=== PATIENT | female | born 1935 | race Caucasian/White ===

== ENCOUNTER 2017-05-28 01:14 | Emergency (ER) | payer SELFPAY, OTHER, MEDICARE | END 2017-05-28 05:24 | disposition left against medical advice (07) | LOC: E/R 05:24 | DX: Z53.21 Procedure and treatment not carried out due to patient leaving prior to being seen by health care provider (principal) ==

== ENCOUNTER 2017-05-29 21:19 | Inpatient (IN) | payer MEDICARE, OTHER ==
[2017-05-30] MEDS ORDERED: DOCUSATE SODIUM 100 MG CAP PO (01:30)
[2017-05-30] MEDS ORDERED: LORAZEPAM 2 MG INJ IV (01:30)
[2017-05-30] MEDS ORDERED: MAGNESIUM HYDROXIDE 30ML CUP PO (01:30)
[2017-05-30] MEDS ORDERED: NITROGLYCERIN (SL) 0.4 MG TAB SL (01:30)
[2017-05-30] MEDS ORDERED: HYDROCODONE/APAP (5/325) TAB PO (01:30)
[2017-05-30] MEDS ORDERED: morphine 2 MG INJ IV (01:30)
[2017-05-30] MEDS ORDERED: NACL 0.9% 3 ML SYG IV (01:30)
[2017-05-30] MEDS ORDERED: NA PHOSPHATE/BIPHOS 133 ML ENEMA PR (01:30)
[2017-05-30] MEDS ORDERED: hydrALAzine 20 MG INJ IV (01:30)
[2017-05-30] MEDS ORDERED: ALBUTEROL/IPRATROPIUM (NEB) 3 ML AMP HHN (01:30)
[2017-05-30] MEDS ORDERED: ACETAMINOPHEN 325 MG TAB PO (01:30)
[2017-05-30] MEDS: ACCU-CHEK XX (01:40)
[2017-05-30] MEDS: SOD CHLORIDE 0.45% 1,000 ML IV ×2 (02:15→14:03)
[2017-05-30] MEDS: CEFTRIAXONE 1 GM/50 ML (PMX) 50 ML IVPB (02:15)
[2017-05-30] MEDS: INSULIN ASPART [NOVOLOG] 3 ML PEN SC ×5 (05:35→20:55)
[2017-05-30] MEDS: PANTOPRAZOLE (EC) 40 MG TAB PO (05:36)
[2017-05-30 07:49] LABS: LACTIC ACID 0.7 mmol/L (0.5-2.0)
[2017-05-30] MEDS: INSULIN GLARGINE [LANtus] 3 ML PEN SC (10:00)
[2017-05-30] MEDS: BRIMONIDINE 0.2%-TIMOLOL 0.5% 5ML OPH BOTH EYES ×2 (10:01→20:47)
[2017-05-30] MEDS: PAROXETINE 10 MG TAB PO (10:02)
[2017-05-30] MEDS: LAMOTRIGINE 25 MG TAB PO ×2 (10:02→20:54)
[2017-05-30] MEDS: APIXABAN 5 MG TABLET PO ×2 (10:02→20:49)
[2017-05-30] MEDS: FOLIC ACID 0.4 MG TAB PO (10:10)
[2017-05-30] MEDS: ONDANSETRON 4 MG INJ IV (10:42)
[2017-05-30 11:35] LABS: ADD MAN DIFF? NO
[2017-05-30 11:44] LABS: WHITE BLOOD COUNT 14.4 10^3/ul (4.8-10.8)
[2017-05-30 11:44] LABS: BASOPHIL # 0.1 10^3/ul (0.0-0.1); BASOPHILS % 0.3 % (0.0-2.0); EOSINOPHILS # 0.2 10^3/ul (0.0-0.5); EOSINOPHILS % 1.4 % (0.0-7.0); HEMATOCRIT 34.8 % (37.0-47.0); LYMPHOCYTES # 1.8 10^3/ul (0.8-2.9); LYMPHOCYTES % 12.8 % (15.0-51.0); MEAN CORPUSCULAR HEMOGLOBIN 27.5 pg (29.0-33.0); MEAN CORPUSCULAR HGB CONC 31.6 g/dl (32.0-37.0); MONOCYTE # 0.8 10^3/ul (0.3-0.9); MONOCYTES % 5.4 % (0.0-11.0); NEUTROPHIL # 11.5 10^3/ul (1.6-7.5); NEUTROPHILS % 79.8 % (39.0-77.0); PLATELET COUNT 222 10^3/UL (140-415); RED CELL DISTRIBUTION WIDTH 13.1 % (11.5-14.5)
[2017-05-30 11:45] LABS: MEAN PLATELET VOLUME 11.4 fl (7.4-10.4); POSITIVE DIFF @See below
[2017-05-30 12:16] LABS: ANION GAP 15 (8-16); BLOOD UREA NITROGEN 15 mg/dl (7-20); CALCIUM 7.5 mg/dl (8.4-10.2); CARBON DIOXIDE 22 mmol/L (21-31); CHLORIDE 106 mmol/L (97-110); CREATININE 0.76 mg/dl (0.44-1.00); GLUCOSE 127 mg/dl (70-220); POTASSIUM 3.8 mmol/L (3.5-5.1); SODIUM 139 mmol/L (135-144)
[2017-05-30 12:54] LABS: CHOL/HDL RATIO 2.1 RATIO; HDL CHOLESTEROL 35 mg/dl (33-92); LDL CHOLESTEROL,CALCULATED 26 mg/dl; TRIGLYCERIDES 76 mg/dl (0-149)
[2017-05-30 12:54] LABS: CHOLESTEROL 76 mg/dl (100-200); MAGNESIUM 1.8 mg/dl (1.7-2.5)
[2017-05-30 12:57] LABS: PHOSPHORUS 2.9 mg/dl (2.5-4.9)
[2017-05-30 12:59] LABS: HEMOGLOBIN A1C 7.1 % (0-5.9)
[2017-05-30] MEDS: DEXTROSE 5%-0.45% NACL 1,000 ML IV (17:44)
[2017-05-30] MEDS ORDERED: APIXABAN 5 MG TABLET (19:59)
[2017-05-30] MEDS ORDERED: ATORVASTATIN 40 MG TAB (20:00)
[2017-05-30] MEDS ORDERED: ATORVASTATIN 20 MG TAB (20:00)
[2017-05-30] MEDS: ATORVASTATIN 10 MG TAB PO (20:54)
[2017-05-31] MEDS: INSULIN ASPART [NOVOLOG] 3 ML PEN SC ×4 (01:00→13:16)
[2017-05-31] MEDS: ACCU-CHEK XX (02:00)
[2017-05-31] MEDS: CEFTRIAXONE 1 GM/50 ML (PMX) 50 ML IVPB (02:29)
[2017-05-31] MEDS: PANTOPRAZOLE (EC) 40 MG TAB PO (05:22)
[2017-05-31 06:10] LABS: ADD MAN DIFF? NO
[2017-05-31 06:25] LABS: WHITE BLOOD COUNT 16.9 10^3/ul (4.8-10.8)
[2017-05-31 06:25] LABS: BASOPHILS % 0.2 % (0.0-2.0); EOSINOPHILS # 0.1 10^3/ul (0.0-0.5); EOSINOPHILS % 0.5 % (0.0-7.0); HEMATOCRIT 30.1 % (37.0-47.0); HEMOGLOBIN 9.6 g/dl (12.0-16.0); LYMPHOCYTES # 1.8 10^3/ul (0.8-2.9); LYMPHOCYTES % 10.6 % (15.0-51.0); MEAN CORPUSCULAR HEMOGLOBIN 27.8 pg (29.0-33.0); MEAN CORPUSCULAR HGB CONC 31.9 g/dl (32.0-37.0); MEAN CORPUSCULAR VOLUME 87.2 fl (82.0-101.0); MONOCYTES % 5.8 % (0.0-11.0); NEUTROPHIL # 13.9 10^3/ul (1.6-7.5); NEUTROPHILS % 82.2 % (39.0-77.0); PLATELET COUNT 233 10^3/UL (140-415); RED BLOOD COUNT 3.45 10^6/ul (4.20-5.40); RED CELL DISTRIBUTION WIDTH 13.2 % (11.5-14.5)
[2017-05-31] MEDS: DEXTROSE 5%-0.45% NACL 1,000 ML IV ×2 (07:04→10:02)
[2017-05-31 07:44] LABS: ANION GAP 8 (8-16); BLOOD UREA NITROGEN 16 mg/dl (7-20); CALCIUM 7.8 mg/dl (8.4-10.2); CARBON DIOXIDE 23 mmol/L (21-31); CHLORIDE 109 mmol/L (97-110); CREATININE 0.94 mg/dl (0.44-1.00); GLUCOSE 99 mg/dl (70-220); POTASSIUM 3.3 mmol/L (3.5-5.1); SODIUM 137 mmol/L (135-144)
[2017-05-31] MEDS: BRIMONIDINE 0.2%-TIMOLOL 0.5% 5ML OPH BOTH EYES ×2 (09:23→21:09)
[2017-05-31] MEDS: PAROXETINE 10 MG TAB PO (09:23)
[2017-05-31] MEDS: APIXABAN 5 MG TABLET PO ×2 (09:24→21:09)
[2017-05-31] MEDS: LAMOTRIGINE 25 MG TAB PO ×2 (09:24→21:08)
[2017-05-31] MEDS: FOLIC ACID 0.4 MG TAB PO (09:24)
[2017-05-31] MEDS: INSULIN GLARGINE [LANtus] 3 ML PEN SC (09:28)
[2017-05-31] MEDS: metroNIDAZOLE 500 MG TAB PO ×2 (15:15→21:09)
[2017-05-31] MEDS: POTASSIUM CHLORIDE (SR) 20 MEQ TAB PO (15:16)
[2017-05-31] MEDS ORDERED: INSULIN ASPART [NOVOLOG] 3 ML PEN SC (17:35)
[2017-05-31] MEDS: Insulin NOVOLOG SS MILD Algorithm (SS with meals and bedtime) SC ×2 (17:35→21:00)
[2017-05-31] MEDS: ATORVASTATIN 10 MG TAB PO (21:08)
[2017-06-01] MEDS: ACCU-CHEK XX (02:00)
[2017-06-01] MEDS: CEFTRIAXONE 1 GM/50 ML (PMX) 50 ML IVPB (02:01)
[2017-06-01] MEDS: metroNIDAZOLE 500 MG TAB PO ×3 (05:13→21:33)
[2017-06-01] MEDS: PANTOPRAZOLE (EC) 40 MG TAB PO (05:13)
[2017-06-01 06:21] LABS: ADD MAN DIFF? NO
[2017-06-01 06:38] LABS: WHITE BLOOD COUNT 14.8 10^3/ul (4.8-10.8)
[2017-06-01 06:38] LABS: BASOPHIL # 0.1 10^3/ul (0.0-0.1); BASOPHILS % 0.3 % (0.0-2.0); EOSINOPHILS # 0.2 10^3/ul (0.0-0.5); HEMATOCRIT 28.9 % (37.0-47.0); HEMOGLOBIN 9.4 g/dl (12.0-16.0); LYMPHOCYTES # 1.7 10^3/ul (0.8-2.9); LYMPHOCYTES % 11.7 % (15.0-51.0); MEAN CORPUSCULAR HEMOGLOBIN 27.9 pg (29.0-33.0); MEAN CORPUSCULAR HGB CONC 32.5 g/dl (32.0-37.0); MEAN CORPUSCULAR VOLUME 85.8 fl (82.0-101.0); MEAN PLATELET VOLUME 10.9 fl (7.4-10.4); MONOCYTE # 0.8 10^3/ul (0.3-0.9); MONOCYTES % 5.2 % (0.0-11.0); NEUTROPHIL # 12.1 10^3/ul (1.6-7.5); NEUTROPHILS % 81.5 % (39.0-77.0); PLATELET COUNT 242 10^3/UL (140-415); RED BLOOD COUNT 3.37 10^6/ul (4.20-5.40); RED CELL DISTRIBUTION WIDTH 13.2 % (11.5-14.5)
[2017-06-01] MEDS: Insulin NOVOLOG SS MILD Algorithm (SS with meals and bedtime) SC ×4 (07:30→21:00)
[2017-06-01 08:40] LABS: ANION GAP 10 (8-16); BLOOD UREA NITROGEN 16 mg/dl (7-20); CALCIUM 7.6 mg/dl (8.4-10.2); CARBON DIOXIDE 22 mmol/L (21-31); CHLORIDE 109 mmol/L (97-110); CREATININE 0.97 mg/dl (0.44-1.00); GLUCOSE 109 mg/dl (70-220); POTASSIUM 3.3 mmol/L (3.5-5.1); SODIUM 138 mmol/L (135-144)
[2017-06-01] MEDS: APIXABAN 5 MG TABLET PO ×2 (09:19→21:33)
[2017-06-01] MEDS: BRIMONIDINE 0.2%-TIMOLOL 0.5% 5ML OPH BOTH EYES ×2 (09:19→21:34)
[2017-06-01] MEDS: FOLIC ACID 0.4 MG TAB PO (09:20)
[2017-06-01] MEDS: PAROXETINE 10 MG TAB PO (09:20)
[2017-06-01] MEDS: LAMOTRIGINE 25 MG TAB PO ×2 (09:21→21:33)
[2017-06-01] MEDS: INSULIN GLARGINE [LANtus] 3 ML PEN SC (09:22)
[2017-06-01] MEDS: POTASSIUM CHLORIDE 20 MEQ POWDER FOR ORAL SOLN PO (16:56)
[2017-06-01] MEDS: SOD CHLORIDE 0.9% 500 ML IV (16:56)
[2017-06-01] MEDS: FAMOTIDINE 20 MG TAB PO (16:56)
[2017-06-01] MEDS: VANCOMYCIN HCL 250 MG/5ML POSYG PO ×2 (17:07→23:39)
[2017-06-01] MEDS: ATORVASTATIN 10 MG TAB PO (21:33)
[2017-06-02] MEDS: ACCU-CHEK XX (02:00)
[2017-06-02] MEDS: VANCOMYCIN HCL 250 MG/5ML POSYG PO ×3 (06:01→17:37)
[2017-06-02] MEDS: metroNIDAZOLE 500 MG TAB PO ×3 (06:01→20:47)
[2017-06-02 06:09] LABS: ADD MAN DIFF? NO
[2017-06-02 06:19] LABS: WHITE BLOOD COUNT 10.2 10^3/ul (4.8-10.8)
[2017-06-02 06:19] LABS: BASOPHILS % 0.3 % (0.0-2.0); EOSINOPHILS # 0.3 10^3/ul (0.0-0.5); EOSINOPHILS % 2.5 % (0.0-7.0); HEMOGLOBIN 9.5 g/dl (12.0-16.0); LYMPHOCYTES # 1.5 10^3/ul (0.8-2.9); LYMPHOCYTES % 14.9 % (15.0-51.0); MEAN CORPUSCULAR HEMOGLOBIN 27.9 pg (29.0-33.0); MEAN CORPUSCULAR HGB CONC 32.8 g/dl (32.0-37.0); MEAN CORPUSCULAR VOLUME 85.3 fl (82.0-101.0); MEAN PLATELET VOLUME 10.8 fl (7.4-10.4); MONOCYTE # 0.5 10^3/ul (0.3-0.9); MONOCYTES % 4.6 % (0.0-11.0); NEUTROPHIL # 7.9 10^3/ul (1.6-7.5); NEUTROPHILS % 77.4 % (39.0-77.0); PLATELET COUNT 229 10^3/UL (140-415); RED CELL DISTRIBUTION WIDTH 13.1 % (11.5-14.5)
[2017-06-02 06:37] LABS: PHOSPHORUS 2.5 mg/dl (2.5-4.9)
[2017-06-02 06:37] LABS: MAGNESIUM 1.8 mg/dl (1.7-2.5)
[2017-06-02 06:40] LABS: INR 1.94; PROTIME 22.6 Sec (11.9-14.9); PT RATIO 1.8
[2017-06-02] MEDS: Insulin NOVOLOG SS MILD Algorithm (SS with meals and bedtime) SC ×4 (07:30→20:55)
[2017-06-02] MEDS: APIXABAN 5 MG TABLET PO ×2 (08:31→20:47)
[2017-06-02] MEDS: PAROXETINE 10 MG TAB PO (08:31)
[2017-06-02] MEDS: POTASSIUM CHLORIDE 20 MEQ POWDER FOR ORAL SOLN PO ×2 (08:31→20:47)
[2017-06-02] MEDS: FAMOTIDINE 20 MG TAB PO (08:31)
[2017-06-02] MEDS: FOLIC ACID 0.4 MG TAB PO (08:31)
[2017-06-02] MEDS: LAMOTRIGINE 25 MG TAB PO ×2 (08:31→20:48)
[2017-06-02] MEDS: BRIMONIDINE 0.2%-TIMOLOL 0.5% 5ML OPH BOTH EYES ×2 (08:32→20:47)
[2017-06-02] MEDS: INSULIN GLARGINE [LANtus] 3 ML PEN SC (08:34)
[2017-06-02 09:38] LABS: ALANINE AMINOTRANSFERASE 28 IU/L (13-69); ALBUMIN 2.4 g/dl (3.3-4.9); ALKALINE PHOSPHATASE 72 IU/L (42-121); ANION GAP 12 (8-16); ASPARTATE AMINO TRANSFERASE 17 IU/L (15-46); BLOOD UREA NITROGEN 15 mg/dl (7-20); CALCIUM 7.7 mg/dl (8.4-10.2); CARBON DIOXIDE 21 mmol/L (21-31); CHLORIDE 111 mmol/L (97-110); CREATININE 0.88 mg/dl (0.44-1.00); GLUCOSE 132 mg/dl (70-220); POTASSIUM 3.5 mmol/L (3.5-5.1); SODIUM 140 mmol/L (135-144); TOTAL PROTEIN 4.8 g/dl (6.1-8.1)
[2017-06-02] MEDS: ATORVASTATIN 10 MG TAB PO (20:48)
[2017-06-03] MEDS: VANCOMYCIN HCL 250 MG/5ML POSYG PO ×3 (00:35→12:20)
[2017-06-03] MEDS: ACCU-CHEK XX (02:44)
[2017-06-03 05:41] LABS: ADD MAN DIFF? NO
[2017-06-03] MEDS: metroNIDAZOLE 500 MG TAB PO ×2 (05:45→14:16)
[2017-06-03 05:46] LABS: BASOPHILS % 0.4 % (0.0-2.0); EOSINOPHILS # 0.3 10^3/ul (0.0-0.5); EOSINOPHILS % 3.4 % (0.0-7.0); HEMATOCRIT 30.7 % (37.0-47.0); HEMOGLOBIN 9.9 g/dl (12.0-16.0); LYMPHOCYTES # 1.6 10^3/ul (0.8-2.9); LYMPHOCYTES % 20.5 % (15.0-51.0); MEAN CORPUSCULAR HEMOGLOBIN 27.3 pg (29.0-33.0); MEAN CORPUSCULAR HGB CONC 32.2 g/dl (32.0-37.0); MEAN CORPUSCULAR VOLUME 84.6 fl (82.0-101.0); MEAN PLATELET VOLUME 10.3 fl (7.4-10.4); MONOCYTE # 0.5 10^3/ul (0.3-0.9); MONOCYTES % 6.2 % (0.0-11.0); NEUTROPHIL # 5.2 10^3/ul (1.6-7.5); NEUTROPHILS % 69.2 % (39.0-77.0); PLATELET COUNT 276 10^3/UL (140-415); RED BLOOD COUNT 3.63 10^6/ul (4.20-5.40)
[2017-06-03 05:46] LABS: WHITE BLOOD COUNT 7.6 10^3/ul (4.8-10.8)
[2017-06-03 06:07] LABS: ANION GAP 10 (8-16); BLOOD UREA NITROGEN 15 mg/dl (7-20); CALCIUM 7.8 mg/dl (8.4-10.2); CARBON DIOXIDE 20 mmol/L (21-31); CHLORIDE 114 mmol/L (97-110); CREATININE 0.83 mg/dl (0.44-1.00); GLUCOSE 160 mg/dl (70-220); POTASSIUM 4.3 mmol/L (3.5-5.1); SODIUM 140 mmol/L (135-144)
[2017-06-03] MEDS: Insulin NOVOLOG SS MILD Algorithm (SS with meals and bedtime) SC ×2 (08:30→12:22)
[2017-06-03] MEDS: PAROXETINE 10 MG TAB PO (09:53)
[2017-06-03] MEDS: LAMOTRIGINE 25 MG TAB PO (09:53)
[2017-06-03] MEDS: BRIMONIDINE 0.2%-TIMOLOL 0.5% 5ML OPH BOTH EYES (09:53)
[2017-06-03] MEDS: FAMOTIDINE 20 MG TAB PO (09:54)
[2017-06-03] MEDS: APIXABAN 5 MG TABLET PO (09:54)
[2017-06-03] MEDS: FOLIC ACID 0.4 MG TAB PO (09:54)
[2017-06-03] MEDS: POTASSIUM CHLORIDE 20 MEQ POWDER FOR ORAL SOLN PO (09:55)
[2017-06-03] MEDS: INSULIN GLARGINE [LANtus] 3 ML PEN SC (10:03)
[2017-06-03] MEDS: LEVOFLOXACIN 500MG/D5W (PMX) 100 ML IVPB (12:19)
[2017-06-03] MEDS: LACTOBACILLUS RHAMNOSUS CAP PO (12:20)
== END 2017-06-03 16:10 | disposition home health service (06) | DRG 372 ==
LOC: PP2 21:19
PROVIDERS: Internal Medicine
DX: A04.72 Enterocolitis due to Clostridium difficile, not specified as recurrent (principal); N39.0 Urinary tract infection, site not specified; I48.2 Chronic atrial fibrillation; E11.9 Type 2 diabetes mellitus without complications; G40.909 Epilepsy, unspecified, not intractable, without status epilepticus; E78.5 Hyperlipidemia, unspecified; I10 Essential (primary) hypertension; Z86.73 Personal history of transient ischemic attack (TIA), and cerebral infarction without residual deficits; Z79.01 Long term (current) use of anticoagulants
CPT/HCPCS: 80048; 80053; 80061; 82962; 83036; 83605; 83735; 84100; 84443; 85025; 85610; 87045; 87075; 87081; 87177

== ENCOUNTER 2017-07-09 02:55 | Inpatient (IN) | payer MEDICARE, OTHER ==
[2017-07-09] MEDS: DEXTROSE 5%-0.45% NACL 1,000 ML IV (05:01)
[2017-07-09] MEDS ORDERED: GLUCAGON 1 MG INJ IM (05:30)
[2017-07-09] MEDS ORDERED: GLUCOSE GEL 15 GRAM TUBE PO ×2 (05:30)
[2017-07-09] MEDS ORDERED: GLUCOSE GEL 15 GRAM TUBE BUCCAL (05:30)
[2017-07-09] MEDS ORDERED: DEXTROSE 50% 50 ML SYRINGE IV ×2 (05:30)
[2017-07-09] MEDS: INSULIN ASPART [NOVOLOG] 3 ML PEN SC ×7 (05:39→21:30)
[2017-07-09 05:57] LABS: ABNORMAL IP MESSAGE 1; MEAN CORPUSCULAR HEMOGLOBIN 27.6 pg (29.0-33.0); MEAN CORPUSCULAR HGB CONC 32.4 g/dl (32.0-37.0); MEAN CORPUSCULAR VOLUME 85.4 fl (82.0-101.0); MEAN PLATELET VOLUME 11.9 fl (7.4-10.4); PLATELET COUNT 165 10^3/UL (140-415); RED BLOOD COUNT 3.98 10^6/ul (4.20-5.40); RED CELL DISTRIBUTION WIDTH 14.2 % (11.5-14.5)
[2017-07-09 05:57] LABS: WHITE BLOOD COUNT 9.9 10^3/ul (4.8-10.8)
[2017-07-09 06:43] LABS: POSITIVE DIFF @See below
[2017-07-09 06:44] LABS: ADD MAN DIFF? YES
[2017-07-09 06:46] LABS: ALANINE AMINOTRANSFERASE 20 IU/L (13-69); ALBUMIN 3.2 g/dl (3.3-4.9); ALKALINE PHOSPHATASE 81 IU/L (42-121); ANION GAP 18 (8-16); ASPARTATE AMINO TRANSFERASE 22 IU/L (15-46); BILIRUBIN,INDIRECT 0.2 mg/dl (0-1.1); BILIRUBIN,TOTAL 0.2 mg/dl (0.2-1.3); BLOOD UREA NITROGEN 24 mg/dl (7-20); CALCIUM 8.4 mg/dl (8.4-10.2); CARBON DIOXIDE 18 mmol/L (21-31); CHLORIDE 109 mmol/L (97-110); GLUCOSE 192 mg/dl (70-220); MAGNESIUM 1.6 mg/dl (1.7-2.5); PHOSPHORUS 3.7 mg/dl (2.5-4.9); POTASSIUM 3.2 mmol/L (3.5-5.1); SODIUM 142 mmol/L (135-144); TOTAL PROTEIN 6.4 g/dl (6.1-8.1)
[2017-07-09 06:50] LABS: HEMOGLOBIN A1C 6.6 % (0-5.9)
[2017-07-09] MEDS: CEFTRIAXONE 1 GM/50 ML (PMX) 50 ML IVPB (08:54)
[2017-07-09] MEDS ORDERED: LOSARTAN 25 MG TAB PO (09:00)
[2017-07-09] MEDS ORDERED: NITROGLYCERIN (SL) 0.4 MG TAB SL (09:00)
[2017-07-09 10:08] LABS: ADD UMIC YES; UR AMORPHOUS CRYSTAL FEW /HPF (NONE SEEN); UR ASCORBIC ACID NEGATIVE (NEGATIVE); UR BACTERIA MANY /HPF (NONE SEEN); UR BILIRUBIN (Dip) NEGATIVE (NEGATIVE); UR BLOOD (Dip) 2+ mg/dL (NEGATIVE); UR CLARITY CLOUDY (CLEAR); UR COLOR YELLOW (YELLOW); UR GLUCOSE (Dip) NEGATIVE (NEGATIVE); UR KETONES (Dip) NEGATIVE (NEGATIVE); UR LEUKOCYTE ESTERASE (Dip) NEGATIVE Leu/ul (NEGATIVE); UR MUCUS FEW /HPF (NONE SEEN); UR NITRITE (Dip) POSITIVE (NEGATIVE); UR RBC 0 /HPF (0-5); UR SQUAMOUS EPITHELIAL CELL FEW /HPF (FEW); UR TOTAL PROTEIN (Dip) 1+ mg/dl (NEGATIVE); UR UROBILINOGEN (Dip) NEGATIVE (NEGATIVE); UR WBC 5 /HPF (0-5)
[2017-07-09] MEDS: APIXABAN 5 MG TABLET PO (10:17)
[2017-07-09] MEDS: LOSARTAN 50 MG TAB PO (10:17)
[2017-07-09] MEDS: metroNIDAZOLE 500 MG/NS (PMX) 100 ML IVPB ×3 (10:22→22:54)
[2017-07-09 10:44] LABS: BAND NEUTROPHILS #M 0.4 10^3/ul (0.0-0.6); BAND NEUTROPHILS % (M) 5 % (0-4); LYMPHOCYTES # 0.6 10^3/ul (0.8-2.9); LYMPHOCYTES #M 0.5 10^3/ul (0.8-2.9); LYMPHOCYTES % (M) 6 % (15-51); MONOCYTE # 0.3 10^3/ul (0.3-0.9); MONOCYTE #M 0.2 10^3/ul (0.3-0.9); MONOCYTES % (M) 3 % (0-11); SEG NEUT #M 8.6 10^3/ul (1.7-7.5); SEGMENTED NEUTROPHILS (M) % 86 % (39-77)
[2017-07-09 10:45] LABS: POIKILOCYTOSIS 1+ (0-0); POLYCHROMASIA 1+ (0-0)
[2017-07-09 10:46] LABS: PLATELET ESTIMATE NORMAL
[2017-07-09] MEDS: BRIMONIDINE 0.2%-TIMOLOL 0.5% 5ML OPH BOTH EYES ×2 (10:48→21:30)
[2017-07-09] MEDS: PAROXETINE 10 MG TAB PO (10:49)
[2017-07-09] MEDS: ACETAMINOPHEN 325 MG TAB PO (10:49)
[2017-07-09] MEDS: FOLIC ACID 0.4 MG TAB PO (10:49)
[2017-07-09] MEDS: LAMOTRIGINE 25 MG TAB PO ×2 (10:49→21:00)
[2017-07-09] MEDS: INSULIN GLARGINE [LANtus] 3 ML PEN SC (11:02)
[2017-07-09] MEDS ORDERED: ONDANSETRON 4 MG INJ IV (11:30)
[2017-07-09] MEDS: POTASSIUM CHLORIDE (SR) 20 MEQ TAB PO (13:08)
[2017-07-09] MEDS: MAGNESIUM SULFATE 2 GM/50 ML 50 ML IVPB (14:03)
[2017-07-09] MEDS: D5W-0.45 NACL + KCL 30 MEQ 1,000 ML IV (17:09)
[2017-07-09] MEDS: ATORVASTATIN 10 MG TAB PO (21:00)
[2017-07-10] MEDS: INSULIN ASPART [NOVOLOG] 3 ML PEN SC ×9 (01:00→20:27)
[2017-07-10] MEDS: D5W-0.45 NACL + KCL 30 MEQ 1,000 ML IV ×3 (04:30→20:43)
[2017-07-10] MEDS: PANTOPRAZOLE (EC) 40 MG TAB PO (05:03)
[2017-07-10] MEDS: metroNIDAZOLE 500 MG/NS (PMX) 100 ML IVPB (05:54)
[2017-07-10 07:15] LABS: ABNORMAL IP MESSAGE 1; HEMATOCRIT 30.9 % (37.0-47.0); MEAN CORPUSCULAR HEMOGLOBIN 27.7 pg (29.0-33.0); MEAN CORPUSCULAR HGB CONC 32.4 g/dl (32.0-37.0); MEAN CORPUSCULAR VOLUME 85.6 fl (82.0-101.0); MEAN PLATELET VOLUME 12.1 fl (7.4-10.4); PLATELET COUNT 220 10^3/UL (140-415); RED BLOOD COUNT 3.61 10^6/ul (4.20-5.40); RED CELL DISTRIBUTION WIDTH 14.1 % (11.5-14.5)
[2017-07-10 07:15] LABS: WHITE BLOOD COUNT 16.3 10^3/ul (4.8-10.8)
[2017-07-10 07:21] LABS: POSITIVE DIFF @See below
[2017-07-10 07:22] LABS: ADD MAN DIFF? YES
[2017-07-10 07:39] LABS: ANION GAP 15 (8-16); BLOOD UREA NITROGEN 32 mg/dl (7-20); CALCIUM 7.9 mg/dl (8.4-10.2); CARBON DIOXIDE 19 mmol/L (21-31); CHLORIDE 111 mmol/L (97-110); GLUCOSE 72 mg/dl (70-220); MAGNESIUM 2.3 mg/dl (1.7-2.5); SODIUM 142 mmol/L (135-144)
[2017-07-10 07:47] LABS: POTASSIUM 2.8 mmol/L (3.5-5.1)
[2017-07-10] MEDS: CEFTRIAXONE 1 GM/50 ML (PMX) 50 ML IVPB (08:47)
[2017-07-10] MEDS: BRIMONIDINE 0.2%-TIMOLOL 0.5% 5ML OPH BOTH EYES ×2 (08:47→20:23)
[2017-07-10] MEDS: LAMOTRIGINE 25 MG TAB PO ×2 (08:48→20:21)
[2017-07-10] MEDS: APIXABAN 5 MG TABLET PO ×2 (08:48→20:23)
[2017-07-10] MEDS: PAROXETINE 10 MG TAB PO (08:48)
[2017-07-10] MEDS: LOSARTAN 50 MG TAB PO (08:48)
[2017-07-10] MEDS: FOLIC ACID 0.4 MG TAB PO (08:48)
[2017-07-10 09:19] LABS: ANISOCYTOSIS 1+ (0-0); BAND NEUTROPHILS #M 6.5 10^3/ul (0.0-0.6); BAND NEUTROPHILS % (M) 40 % (0-4); BASOPHIL #M 0.1 10^3/ul (0.0-0.0); BASOPHILS % (M) 1 % (0-2); EOSINOPHILS % (M) 1 % (0-7); GIANT THROMBO% (M) 1 % (0-0); LYMPHOCYTES #M 4.7 10^3/ul (0.8-2.9); LYMPHOCYTES % (M) 29 % (15-51); MICROCYTOSIS 1+ (0-0); MONOCYTE #M 0.8 10^3/ul (0.3-0.9); MONOCYTES % (M) 5 % (0-11); PLATELET ESTIMATE NORMAL; POLYCHROMASIA 2+ (0-0); REACTIVE LYMPHOCYTES #M 0.3 10^3/ul (0.0-0.0); REACTIVE LYMPHOCYTES% (M) 2 % (0-0); SEG NEUT #M 4.6 10^3/ul (1.6-7.5); SEGMENTED NEUTROPHILS (M) % 22 % (39-77); SMUDGE%M 20 % (0-0)
[2017-07-10] MEDS: POTASSIUM CHLORIDE 100 ML IVPB ×2 (10:08→12:28)
[2017-07-10] MEDS: INSULIN GLARGINE [LANtus] 3 ML PEN SC ×2 (10:13→12:38)
[2017-07-10] MEDS: VANCOMYCIN HCL 250 MG/5ML POSYG PO ×2 (14:07→18:13)
[2017-07-10] MEDS: ATORVASTATIN 10 MG TAB PO (20:22)
[2017-07-10] MEDS: ACETAMINOPHEN 325 MG TAB PO (20:36)
[2017-07-10] MEDS ORDERED: NORepinephrine 8MG/250 ML (PMX 250 ML (22:33)
[2017-07-11] MEDS: NORepinephrine 8MG/250 ML (PMX 250 ML IV (00:21)
[2017-07-11] MEDS: SOD CHLORIDE 0.9% 500 ML IV (00:30)
[2017-07-11] MEDS: D5W-0.45 NACL + KCL 30 MEQ 1,000 ML IV ×2 (00:46→12:15)
[2017-07-11] MEDS: VANCOMYCIN HCL 250 MG/5ML POSYG PO ×5 (01:56→23:17)
[2017-07-11] MEDS: ACCU-CHEK XX (02:05)
[2017-07-11] MEDS: PANTOPRAZOLE (EC) 40 MG TAB PO (05:19)
[2017-07-11 06:36] LABS: WHITE BLOOD COUNT 12.4 10^3/ul (4.8-10.8)
[2017-07-11 06:36] LABS: HEMATOCRIT 26.2 % (37.0-47.0); HEMOGLOBIN 8.7 g/dl (12.0-16.0); MEAN CORPUSCULAR HEMOGLOBIN 28.6 pg (29.0-33.0); MEAN CORPUSCULAR HGB CONC 33.2 g/dl (32.0-37.0); MEAN CORPUSCULAR VOLUME 86.2 fl (82.0-101.0); MEAN PLATELET VOLUME 12.2 fl (7.4-10.4); NUCLEATED RED BLOOD CELLS% 3.1 /100WBC (0.0-0.0); PLATELET COUNT 204 10^3/UL (140-415); RED BLOOD COUNT 3.04 10^6/ul (4.20-5.40); RED CELL DISTRIBUTION WIDTH 14.7 % (11.5-14.5)
[2017-07-11 06:41] LABS: ADD MAN DIFF? YES; POSITIVE DIFF @See below
[2017-07-11 07:01] LABS: ANION GAP 16 (8-16); BLOOD UREA NITROGEN 33 mg/dl (7-20); CALCIUM 7.4 mg/dl (8.4-10.2); CARBON DIOXIDE 16 mmol/L (21-31); CHLORIDE 113 mmol/L (97-110); CREATININE 1.08 mg/dl (0.44-1.00); GLUCOSE 147 mg/dl (70-220); MAGNESIUM 2.2 mg/dl (1.7-2.5); POTASSIUM 3.5 mmol/L (3.5-5.1); SODIUM 141 mmol/L (135-144)
[2017-07-11] MEDS: INSULIN ASPART [NOVOLOG] 3 ML PEN SC ×7 (07:05→20:20)
[2017-07-11] MEDS: INSULIN GLARGINE [LANtus] 3 ML PEN SC (08:46)
[2017-07-11] MEDS: LOSARTAN 50 MG TAB PO (09:00)
[2017-07-11] MEDS ORDERED: APIXABAN 5 MG TABLET PO (09:00)
[2017-07-11] MEDS: BRIMONIDINE 0.2%-TIMOLOL 0.5% 5ML OPH BOTH EYES ×2 (09:32→20:19)
[2017-07-11] MEDS: CEFTRIAXONE 1 GM/50 ML (PMX) 50 ML IVPB (09:32)
[2017-07-11] MEDS: APIXABAN 5 MG TABLET PO ×2 (09:33→20:19)
[2017-07-11] MEDS: FOLIC ACID 0.4 MG TAB PO (09:33)
[2017-07-11] MEDS: LAMOTRIGINE 25 MG TAB PO ×2 (09:33→20:20)
[2017-07-11] MEDS: PAROXETINE 10 MG TAB PO (09:33)
[2017-07-11 10:11] LABS: ANISOCYTOSIS 1+ (0-0); BAND NEUTROPHILS #M 2.8 10^3/ul (0.0-0.6); BAND NEUTROPHILS % (M) 23 % (0-4); EOSINOPHILS % (M) 4 % (0-7); LYMPHOCYTES #M 3.5 10^3/ul (0.8-2.9); LYMPHOCYTES % (M) 29 % (15-51); MICROCYTOSIS 1+ (0-0); MONOCYTE #M 0.4 10^3/ul (0.3-0.9); MONOCYTES % (M) 4 % (0-11); PLATELET ESTIMATE NORMAL; SEG NEUT #M 5.3 10^3/ul (1.6-7.5); SEGMENTED NEUTROPHILS (M) % 40 % (39-77); SMUDGE%M 27 % (0-0)
[2017-07-11] MEDS: ERTAPENEM SODIUM 1 GM in SOD CHLORIDE 0.9% 100 ML IVPB (12:14)
[2017-07-11] MEDS: ATORVASTATIN 10 MG TAB PO (20:19)
[2017-07-12] MEDS: ACCU-CHEK XX (02:00)
[2017-07-12] MEDS: PANTOPRAZOLE (EC) 40 MG TAB PO (05:05)
[2017-07-12] MEDS: VANCOMYCIN HCL 250 MG/5ML POSYG PO ×4 (05:05→23:29)
[2017-07-12] MEDS: D5W-0.45 NACL + KCL 30 MEQ 1,000 ML IV ×2 (05:10→19:00)
[2017-07-12] MEDS: INSULIN ASPART [NOVOLOG] 3 ML PEN SC ×7 (07:55→20:32)
[2017-07-12] MEDS: FOLIC ACID 0.4 MG TAB PO (08:12)
[2017-07-12] MEDS: PAROXETINE 10 MG TAB PO (08:12)
[2017-07-12] MEDS: LAMOTRIGINE 25 MG TAB PO ×2 (08:12→20:26)
[2017-07-12] MEDS: APIXABAN 5 MG TABLET PO ×2 (08:12→20:25)
[2017-07-12] MEDS: BRIMONIDINE 0.2%-TIMOLOL 0.5% 5ML OPH BOTH EYES ×2 (08:13→20:32)
[2017-07-12] MEDS: LOSARTAN 50 MG TAB PO (08:14)
[2017-07-12] MEDS: INSULIN GLARGINE [LANtus] 3 ML PEN SC (08:23)
[2017-07-12 08:27] LABS: ADD MAN DIFF? NO
[2017-07-12 08:35] LABS: WHITE BLOOD COUNT 7.5 10^3/ul (4.8-10.8)
[2017-07-12 08:35] LABS: BASOPHILS % 0.4 % (0.0-2.0); EOSINOPHILS # 0.4 10^3/ul (0.0-0.5); EOSINOPHILS % 5.1 % (0.0-7.0); HEMATOCRIT 28.7 % (37.0-47.0); HEMOGLOBIN 9.4 g/dl (12.0-16.0); LYMPHOCYTES # 2.4 10^3/ul (0.8-2.9); MEAN CORPUSCULAR HEMOGLOBIN 28.1 pg (29.0-33.0); MEAN CORPUSCULAR HGB CONC 32.8 g/dl (32.0-37.0); MEAN CORPUSCULAR VOLUME 85.7 fl (82.0-101.0); MEAN PLATELET VOLUME 11.4 fl (7.4-10.4); MONOCYTE # 0.5 10^3/ul (0.3-0.9); MONOCYTES % 7.2 % (0.0-11.0); NEUTROPHIL # 4.1 10^3/ul (1.6-7.5); NEUTROPHILS % 54.6 % (39.0-77.0); PLATELET COUNT 220 10^3/UL (140-415); RED BLOOD COUNT 3.35 10^6/ul (4.20-5.40); RED CELL DISTRIBUTION WIDTH 14.6 % (11.5-14.5)
[2017-07-12 08:57] LABS: BLOOD UREA NITROGEN 17 mg/dl (7-20); CHLORIDE 115 mmol/L (97-110); CREATININE 0.72 mg/dl (0.44-1.00); PHOSPHORUS 1.5 mg/dl (2.5-4.9); SODIUM 141 mmol/L (135-144)
[2017-07-12 09:39] LABS: ANION GAP 11 (8-16); CALCIUM 7.6 mg/dl (8.4-10.2); CARBON DIOXIDE 19 mmol/L (21-31); GLUCOSE 94 mg/dl (70-220); POTASSIUM 3.7 mmol/L (3.5-5.1)
[2017-07-12] MEDS: ERTAPENEM SODIUM 1 GM in SOD CHLORIDE 0.9% 100 ML IVPB (11:59)
[2017-07-12] MEDS: POTASSIUM PHOSPHATE 40 MEQ in SOD CHLORIDE 0.9% 250 ML IVPB (17:43)
[2017-07-12] MEDS: hydrALAzine 20 MG INJ IV (18:28)
[2017-07-12] MEDS: ATORVASTATIN 10 MG TAB PO (20:32)
[2017-07-13] MEDS: ACCU-CHEK XX (01:55)
[2017-07-13] MEDS: D5W-0.45 NACL + KCL 30 MEQ 1,000 ML IV ×3 (03:26→22:27)
[2017-07-13] MEDS: VANCOMYCIN HCL 250 MG/5ML POSYG PO ×3 (05:03→17:38)
[2017-07-13] MEDS: PANTOPRAZOLE (EC) 40 MG TAB PO (05:04)
[2017-07-13] MEDS: INSULIN ASPART [NOVOLOG] 3 ML PEN SC ×7 (07:55→22:29)
[2017-07-13] MEDS: FOLIC ACID 0.4 MG TAB PO (08:26)
[2017-07-13] MEDS: PAROXETINE 10 MG TAB PO (08:26)
[2017-07-13] MEDS: LAMOTRIGINE 25 MG TAB PO ×2 (08:27→22:28)
[2017-07-13] MEDS: LOSARTAN 50 MG TAB PO (08:27)
[2017-07-13] MEDS: APIXABAN 5 MG TABLET PO ×2 (08:28→22:28)
[2017-07-13] MEDS: BRIMONIDINE 0.2%-TIMOLOL 0.5% 5ML OPH BOTH EYES ×2 (08:29→22:27)
[2017-07-13] MEDS: INSULIN GLARGINE [LANtus] 3 ML PEN SC (08:45)
[2017-07-13 08:46] LABS: ADD MAN DIFF? NO
[2017-07-13 08:51] LABS: BASOPHILS % 0.5 % (0.0-2.0); EOSINOPHILS # 0.2 10^3/ul (0.0-0.5); EOSINOPHILS % 3.2 % (0.0-7.0); HEMATOCRIT 29.1 % (37.0-47.0); HEMOGLOBIN 9.8 g/dl (12.0-16.0); LYMPHOCYTES # 2.6 10^3/ul (0.8-2.9); LYMPHOCYTES % 44.7 % (15.0-51.0); MEAN CORPUSCULAR HGB CONC 33.7 g/dl (32.0-37.0); MEAN CORPUSCULAR VOLUME 83.1 fl (82.0-101.0); MEAN PLATELET VOLUME 11.3 fl (7.4-10.4); MONOCYTE # 0.6 10^3/ul (0.3-0.9); MONOCYTES % 9.4 % (0.0-11.0); NEUTROPHIL # 2.4 10^3/ul (1.6-7.5); PLATELET COUNT 251 10^3/UL (140-415); RED CELL DISTRIBUTION WIDTH 14.8 % (11.5-14.5)
[2017-07-13 08:51] LABS: WHITE BLOOD COUNT 5.9 10^3/ul (4.8-10.8)
[2017-07-13 09:19] LABS: ANION GAP 12 (8-16); BLOOD UREA NITROGEN 8 mg/dl (7-20); CALCIUM 7.7 mg/dl (8.4-10.2); CARBON DIOXIDE 22 mmol/L (21-31); CHLORIDE 110 mmol/L (97-110); CREATININE 0.62 mg/dl (0.44-1.00); GLUCOSE 113 mg/dl (70-220); MAGNESIUM 1.6 mg/dl (1.7-2.5); PHOSPHORUS 2.4 mg/dl (2.5-4.9); POTASSIUM 3.7 mmol/L (3.5-5.1); SODIUM 140 mmol/L (135-144)
[2017-07-13] MEDS: ERTAPENEM SODIUM 1 GM in SOD CHLORIDE 0.9% 100 ML IVPB (12:01)
[2017-07-13] MEDS: MAGNESIUM SULFATE 2 GM/50 ML 50 ML IVPB (14:12)
[2017-07-13] MEDS: ATORVASTATIN 10 MG TAB PO (22:28)
[2017-07-14] MEDS: VANCOMYCIN HCL 250 MG/5ML POSYG PO ×4 (00:25→18:08)
[2017-07-14] MEDS: ACCU-CHEK XX (02:00)
[2017-07-14] MEDS: PANTOPRAZOLE (EC) 40 MG TAB PO (05:02)
[2017-07-14 06:45] LABS: ADD MAN DIFF? NO
[2017-07-14 06:53] LABS: BASOPHILS % 0.6 % (0.0-2.0); EOSINOPHILS # 0.2 10^3/ul (0.0-0.5); EOSINOPHILS % 3.2 % (0.0-7.0); HEMATOCRIT 30.1 % (37.0-47.0); HEMOGLOBIN 10.1 g/dl (12.0-16.0); LYMPHOCYTES # 2.1 10^3/ul (0.8-2.9); LYMPHOCYTES % 40.2 % (15.0-51.0); MEAN CORPUSCULAR HEMOGLOBIN 27.7 pg (29.0-33.0); MEAN CORPUSCULAR HGB CONC 33.6 g/dl (32.0-37.0); MEAN CORPUSCULAR VOLUME 82.7 fl (82.0-101.0); MEAN PLATELET VOLUME 10.7 fl (7.4-10.4); MONOCYTE # 0.6 10^3/ul (0.3-0.9); NEUTROPHIL # 2.3 10^3/ul (1.6-7.5); NEUTROPHILS % 42.9 % (39.0-77.0); PLATELET COUNT 254 10^3/UL (140-415); RED BLOOD COUNT 3.64 10^6/ul (4.20-5.40); RED CELL DISTRIBUTION WIDTH 14.5 % (11.5-14.5)
[2017-07-14 06:53] LABS: WHITE BLOOD COUNT 5.3 10^3/ul (4.8-10.8)
[2017-07-14 08:06] LABS: ANION GAP 12 (8-16); BLOOD UREA NITROGEN 8 mg/dl (7-20); CALCIUM 7.8 mg/dl (8.4-10.2); CARBON DIOXIDE 22 mmol/L (21-31); CHLORIDE 108 mmol/L (97-110); CREATININE 0.59 mg/dl (0.44-1.00); GLUCOSE 166 mg/dl (70-220); MAGNESIUM 1.9 mg/dl (1.7-2.5); PHOSPHORUS 2.2 mg/dl (2.5-4.9); SODIUM 138 mmol/L (135-144)
[2017-07-14] MEDS: LAMOTRIGINE 25 MG TAB PO ×2 (08:47→20:31)
[2017-07-14] MEDS: FOLIC ACID 0.4 MG TAB PO (08:47)
[2017-07-14] MEDS: PAROXETINE 10 MG TAB PO (08:48)
[2017-07-14] MEDS: APIXABAN 5 MG TABLET PO ×2 (08:48→20:31)
[2017-07-14] MEDS: LOSARTAN 50 MG TAB PO (08:48)
[2017-07-14] MEDS: BRIMONIDINE 0.2%-TIMOLOL 0.5% 5ML OPH BOTH EYES ×2 (08:50→20:33)
[2017-07-14] MEDS: INSULIN GLARGINE [LANtus] 3 ML PEN SC (08:59)
[2017-07-14] MEDS: INSULIN ASPART [NOVOLOG] 3 ML PEN SC ×7 (08:59→20:43)
[2017-07-14] MEDS: D5W-0.45 NACL + KCL 30 MEQ 1,000 ML IV ×2 (09:07→20:42)
[2017-07-14] MEDS: ERTAPENEM SODIUM 1 GM in SOD CHLORIDE 0.9% 100 ML IVPB (12:21)
[2017-07-14] MEDS: ATORVASTATIN 10 MG TAB PO (20:31)
[2017-07-15] MEDS: hydrALAzine 20 MG INJ IV (00:43)
[2017-07-15] MEDS: ACCU-CHEK XX (02:00)
[2017-07-15] MEDS: D5W-0.45 NACL + KCL 30 MEQ 1,000 ML IV (04:35)
[2017-07-15] MEDS: PANTOPRAZOLE (EC) 40 MG TAB PO (05:49)
[2017-07-15] MEDS: VANCOMYCIN HCL 250 MG/5ML POSYG PO ×4 (05:49→17:26)
[2017-07-15] MEDS: INSULIN ASPART [NOVOLOG] 3 ML PEN SC ×6 (07:25→17:34)
[2017-07-15] MEDS: FOLIC ACID 0.4 MG TAB PO (08:11)
[2017-07-15] MEDS: LAMOTRIGINE 25 MG TAB PO (08:12)
[2017-07-15] MEDS: APIXABAN 5 MG TABLET PO (08:13)
[2017-07-15] MEDS: PAROXETINE 10 MG TAB PO (08:13)
[2017-07-15] MEDS: LOSARTAN 50 MG TAB PO (08:14)
[2017-07-15] MEDS: INSULIN GLARGINE [LANtus] 3 ML PEN SC (08:25)
[2017-07-15] MEDS: BRIMONIDINE 0.2%-TIMOLOL 0.5% 5ML OPH BOTH EYES (08:26)
[2017-07-15] MEDS: ERTAPENEM SODIUM 1 GM in SOD CHLORIDE 0.9% 100 ML IVPB (11:32)
== END 2017-07-15 18:56 | disposition hospice, home (50) | DRG 871 ==
LOC: TEL 07-11 15:59 → MS2 02:55 → ICU 07-10 22:20 → MS2 14:15
DX: A41.9 Sepsis, unspecified organism (principal); R65.21 Severe sepsis with septic shock; A04.71 Enterocolitis due to Clostridium difficile, recurrent; N39.0 Urinary tract infection, site not specified; F03.90 Unspecified dementia, unspecified severity, without behavioral disturbance, psychotic disturbance, mood disturbance, and anxiety; I48.2 Chronic atrial fibrillation; G40.909 Epilepsy, unspecified, not intractable, without status epilepticus; I10 Essential (primary) hypertension; E11.9 Type 2 diabetes mellitus without complications; B96.20 Unspecified Escherichia coli [E. coli] as the cause of diseases classified elsewhere; E78.5 Hyperlipidemia, unspecified; E87.6 Hypokalemia; R53.81 Other malaise; Z86.73 Personal history of transient ischemic attack (TIA), and cerebral infarction without residual deficits; Z79.4 Long term (current) use of insulin
CPT/HCPCS: 80048; 80053; 81001; 82962; 83036; 83735; 84100; 85025; 87040; 87045; 87075; 87081; 87086; 92526; 92610

== ENCOUNTER 2017-08-10 07:09 | Inpatient (IN) | payer MEDICARE, OTHER ==
[2017-08-10] MEDS ORDERED: OXYCODONE/ACETAMINOPHEN (5/325) TAB PO (10:00)
[2017-08-10] MEDS ORDERED: MAGNESIUM HYDROXIDE 30ML CUP PO (10:00)
[2017-08-10] MEDS ORDERED: NACL 0.9% 3 ML SYG IV (10:00)
[2017-08-10] MEDS ORDERED: ACETAMINOPHEN 325 MG TAB PO (10:00)
[2017-08-10] MEDS ORDERED: BISACODYL (EC) 5 MG TAB PO (10:00)
[2017-08-10] MEDS ORDERED: ONDANSETRON 4 MG INJ IV (10:00)
[2017-08-10] MEDS ORDERED: LAMOTRIGINE 25 MG TAB PO (10:00)
[2017-08-10 10:25] LABS: ADD MAN DIFF? NO
[2017-08-10 10:28] LABS: BASOPHILS % 0.4 % (0.0-2.0); EOSINOPHILS % 0.4 % (0.0-7.0); HEMATOCRIT 30.8 % (37.0-47.0); HEMOGLOBIN 9.9 g/dl (12.0-16.0); LYMPHOCYTES # 1.3 10^3/ul (0.8-2.9); LYMPHOCYTES % 11.6 % (15.0-51.0); MEAN CORPUSCULAR HGB CONC 32.1 g/dl (32.0-37.0); MEAN CORPUSCULAR VOLUME 87.3 fl (82.0-101.0); MEAN PLATELET VOLUME 11.5 fl (7.4-10.4); MONOCYTE # 0.5 10^3/ul (0.3-0.9); MONOCYTES % 4.4 % (0.0-11.0); NEUTROPHIL # 9.3 10^3/ul (1.6-7.5); NEUTROPHILS % 82.9 % (39.0-77.0); PLATELET COUNT 211 10^3/UL (140-415); RED BLOOD COUNT 3.53 10^6/ul (4.20-5.40); RED CELL DISTRIBUTION WIDTH 15.3 % (11.5-14.5)
[2017-08-10 10:28] LABS: WHITE BLOOD COUNT 11.2 10^3/ul (4.8-10.8)
[2017-08-10 10:43] LABS: AMMONIA 10 umol/l (9-30)
[2017-08-10 10:45] LABS: ALANINE AMINOTRANSFERASE 22 IU/L (13-69); ALBUMIN 2.8 g/dl (3.3-4.9); ALKALINE PHOSPHATASE 89 IU/L (42-121); ANION GAP 15 (8-16); ASPARTATE AMINO TRANSFERASE 29 IU/L (15-46); BILIRUBIN,INDIRECT 0.1 mg/dl (0-1.1); BILIRUBIN,TOTAL 0.1 mg/dl (0.2-1.3); BLOOD UREA NITROGEN 49 mg/dl (7-20); CALCIUM 8.2 mg/dl (8.4-10.2); CARBON DIOXIDE 23 mmol/L (21-31); CHLORIDE 113 mmol/L (97-110); CREATININE 1.76 mg/dl (0.44-1.00); GLUCOSE 88 mg/dl (70-220); POTASSIUM 3.5 mmol/L (3.5-5.1); SODIUM 147 mmol/L (135-144); TOTAL PROTEIN 5.9 g/dl (6.1-8.1)
[2017-08-10 10:48] LABS: POSITIVE DIFF @See below
[2017-08-10 11:33] LABS: FREE THYROXINE INDEX (Calc) 3.48 ug/ml (0.65-3.89); T4 (THYROXINE) 7.9 ug/dl (5.5-11.0)
[2017-08-10] MEDS: SOD CHLORIDE 0.9% 1,000 ML IV (11:54)
[2017-08-10] MEDS: INSULIN ASPART [NOVOLOG] 3 ML PEN SC ×5 (12:00→21:00)
[2017-08-10 12:45] LABS: ANISOCYTOSIS 1+ (0-0); BAND NEUTROPHILS #M 2.4 10^3/ul (0.0-0.6); BAND NEUTROPHILS % (M) 22 % (0-4); GIANT THROMBO% (M) 1 % (0-0); LYMPHOCYTES #M 1.4 10^3/ul (0.8-2.9); LYMPHOCYTES % (M) 13 % (15-51); MICROCYTOSIS 1+ (0-0); MONOCYTE #M 0.1 10^3/ul (0.3-0.9); MONOCYTES % (M) 1 % (0-11); PLATELET ESTIMATE NORMAL; POIKILOCYTOSIS 1+ (0-0); POLYCHROMASIA 1+ (0-0); SEG NEUT #M 7.4 10^3/ul (1.6-7.5); SEGMENTED NEUTROPHILS (M) % 64 % (39-77); SMUDGE%M 1 % (0-0)
[2017-08-10] MEDS ORDERED: DEXTROSE 50% 50 ML SYRINGE IV ×2 (13:00)
[2017-08-10] MEDS ORDERED: GLUCAGON 1 MG INJ IM (13:00)
[2017-08-10] MEDS ORDERED: GLUCOSE GEL 15 GRAM TUBE BUCCAL (13:00)
[2017-08-10] MEDS ORDERED: GLUCOSE GEL 15 GRAM TUBE PO ×2 (13:00)
[2017-08-10] MEDS ORDERED: AMIKACIN IV PER PHARMACY XX (13:30)
[2017-08-10] MEDS: DOCUSATE SODIUM 100 MG CAP PO ×2 (15:59→22:00)
[2017-08-10] MEDS: SOD CHLORIDE 0.45% 1,000 ML IV (16:30)
[2017-08-10] MEDS: LAMOTRIGINE 25 MG TAB PO ×3 (16:30→23:05)
[2017-08-10] MEDS: SOD CHLORIDE 0.9% IVPB (17:05)
[2017-08-10] MEDS: AMIKACIN IVPB (17:05)
[2017-08-10] MEDS: VANCOMYCIN HCL 250 MG/5ML POSYG PO ×2 (18:02→23:10)
[2017-08-10] MEDS: INSULIN GLARGINE [LANtus] 3 ML PEN SC (20:00)
[2017-08-10] MEDS: APIXABAN 5 MG TABLET PO (22:04)
[2017-08-10] MEDS: ATORVASTATIN 20 MG TAB PO (22:04)
[2017-08-11] MEDS: ACCU-CHEK XX (02:00)
[2017-08-11 04:41] LABS: ADD UMIC YES; UR ASCORBIC ACID 40 mg/dL (NEGATIVE); UR BILIRUBIN (Dip) NEGATIVE (NEGATIVE); UR BLOOD (Dip) NEGATIVE (NEGATIVE); UR CLARITY CLEAR (CLEAR); UR COLOR YELLOW (YELLOW); UR GLUCOSE (Dip) NEGATIVE (NEGATIVE); UR KETONES (Dip) NEGATIVE (NEGATIVE); UR LEUKOCYTE ESTERASE (Dip) 2+ Leu/ul (NEGATIVE); UR NITRITE (Dip) POSITIVE (NEGATIVE); UR RBC 3 /HPF (0-5); UR SPECIFIC GRAVITY (Dip) 1.014 (1.003-1.030); UR TOTAL PROTEIN (Dip) NEGATIVE (NEGATIVE); UR UROBILINOGEN (Dip) NEGATIVE (NEGATIVE); UR WBC 41 /HPF (0-5)
[2017-08-11 05:04] LABS: CREATININE,URINE RANDOM 86.54 mg/dl (20-320)
[2017-08-11 05:04] LABS: SODIUM,URINE RANDOM 53 mmol/L (30-90)
[2017-08-11 06:08] LABS: ADD MAN DIFF? NO
[2017-08-11 06:12] LABS: WHITE BLOOD COUNT 9.3 10^3/ul (4.8-10.8)
[2017-08-11 06:12] LABS: BASOPHILS % 0.3 % (0.0-2.0); EOSINOPHILS # 0.3 10^3/ul (0.0-0.5); HEMATOCRIT 26.8 % (37.0-47.0); HEMOGLOBIN 8.7 g/dl (12.0-16.0); LYMPHOCYTES # 1.4 10^3/ul (0.8-2.9); LYMPHOCYTES % 15.2 % (15.0-51.0); MEAN CORPUSCULAR HGB CONC 32.5 g/dl (32.0-37.0); MEAN CORPUSCULAR VOLUME 86.2 fl (82.0-101.0); MONOCYTE # 0.5 10^3/ul (0.3-0.9); MONOCYTES % 5.1 % (0.0-11.0); PLATELET COUNT 222 10^3/UL (140-415); RED BLOOD COUNT 3.11 10^6/ul (4.20-5.40)
[2017-08-11 06:14] LABS: POSITIVE DIFF @See below
[2017-08-11] MEDS: VANCOMYCIN HCL 250 MG/5ML POSYG PO ×3 (06:26→17:18)
[2017-08-11 06:29] LABS: ALANINE AMINOTRANSFERASE 24 IU/L (13-69); ALBUMIN 2.4 g/dl (3.3-4.9); ALBUMIN/GLOBULIN RATIO 0.85; ALKALINE PHOSPHATASE 83 IU/L (42-121); ANION GAP 11 (8-16); ASPARTATE AMINO TRANSFERASE 33 IU/L (15-46); BILIRUBIN,INDIRECT 0.2 mg/dl (0-1.1); BILIRUBIN,TOTAL 0.2 mg/dl (0.2-1.3); BLOOD UREA NITROGEN 33 mg/dl (7-20); CARBON DIOXIDE 24 mmol/L (21-31); CHLORIDE 114 mmol/L (97-110); CREATININE 0.97 mg/dl (0.44-1.00); GLUCOSE 78 mg/dl (70-220); MAGNESIUM 1.8 mg/dl (1.7-2.5); POTASSIUM 3.2 mmol/L (3.5-5.1); SODIUM 146 mmol/L (135-144); TOTAL PROTEIN 5.2 g/dl (6.1-8.1)
[2017-08-11 06:35] LABS: ANION GAP 12 (8-16); BLOOD UREA NITROGEN 33 mg/dl (7-20); CALCIUM 7.9 mg/dl (8.4-10.2); CARBON DIOXIDE 24 mmol/L (21-31); CHLORIDE 113 mmol/L (97-110); CREATININE 0.94 mg/dl (0.44-1.00); GLUCOSE 78 mg/dl (70-220); PHOSPHORUS 1.7 mg/dl (2.5-4.9); POTASSIUM 3.2 mmol/L (3.5-5.1); SODIUM 146 mmol/L (135-144)
[2017-08-11] MEDS: INSULIN ASPART [NOVOLOG] 3 ML PEN SC ×7 (07:49→21:00)
[2017-08-11] MEDS: APIXABAN 5 MG TABLET PO ×2 (08:04→21:08)
[2017-08-11] MEDS: CHOLECALCIFEROL 1,000 UNIT TAB PO (08:18)
[2017-08-11] MEDS: PAROXETINE 10 MG TAB PO (08:18)
[2017-08-11] MEDS: LAMOTRIGINE 25 MG TAB PO ×2 (08:18→21:07)
[2017-08-11] MEDS ORDERED: LOSARTAN 50 MG TAB PO (09:00)
[2017-08-11] MEDS: POTASSIUM CHLORIDE (SR) 20 MEQ TAB PO (09:30)
[2017-08-11] MEDS: SOD CHLORIDE 0.45% 1,000 ML IV ×2 (09:30→17:24)
[2017-08-11] MEDS: POTASSIUM PHOSPHATE 20 MEQ in SOD CHLORIDE 0.9% 250 ML IVPB (09:31)
[2017-08-11] MEDS: DOCUSATE SODIUM 100 MG CAP PO ×2 (09:35→21:16)
[2017-08-11] MEDS: ATORVASTATIN 20 MG TAB PO (21:06)
[2017-08-11] MEDS: INSULIN GLARGINE [LANtus] 3 ML PEN SC (21:15)
[2017-08-12] MEDS: VANCOMYCIN HCL 250 MG/5ML POSYG PO ×4 (00:26→17:48)
[2017-08-12] MEDS: ACCU-CHEK XX (02:00)
[2017-08-12 05:56] LABS: ADD MAN DIFF? NO
[2017-08-12 06:14] LABS: BASOPHILS % 0.2 % (0.0-2.0); EOSINOPHILS # 0.2 10^3/ul (0.0-0.5); EOSINOPHILS % 2.6 % (0.0-7.0); HEMATOCRIT 26.7 % (37.0-47.0); HEMOGLOBIN 8.7 g/dl (12.0-16.0); LYMPHOCYTES # 1.5 10^3/ul (0.8-2.9); LYMPHOCYTES % 25.7 % (15.0-51.0); MEAN CORPUSCULAR HEMOGLOBIN 27.4 pg (29.0-33.0); MEAN CORPUSCULAR HGB CONC 32.6 g/dl (32.0-37.0); MEAN PLATELET VOLUME 11.7 fl (7.4-10.4); MONOCYTE # 0.5 10^3/ul (0.3-0.9); MONOCYTES % 8.6 % (0.0-11.0); NEUTROPHIL # 3.6 10^3/ul (1.6-7.5); NEUTROPHILS % 62.2 % (39.0-77.0); PLATELET COUNT 217 10^3/UL (140-415); RED BLOOD COUNT 3.18 10^6/ul (4.20-5.40); RED CELL DISTRIBUTION WIDTH 14.9 % (11.5-14.5)
[2017-08-12 06:14] LABS: WHITE BLOOD COUNT 5.7 10^3/ul (4.8-10.8)
[2017-08-12 06:35] LABS: ANION GAP 11 (8-16); BLOOD UREA NITROGEN 19 mg/dl (7-20); CALCIUM 7.8 mg/dl (8.4-10.2); CARBON DIOXIDE 25 mmol/L (21-31); CHLORIDE 109 mmol/L (97-110); CREATININE 0.71 mg/dl (0.44-1.00); GLUCOSE 107 mg/dl (70-220); MAGNESIUM 1.6 mg/dl (1.7-2.5); PHOSPHORUS 1.9 mg/dl (2.5-4.9); POTASSIUM 3.4 mmol/L (3.5-5.1); SODIUM 142 mmol/L (135-144)
[2017-08-12] MEDS: INSULIN ASPART [NOVOLOG] 3 ML PEN SC ×7 (08:15→20:27)
[2017-08-12] MEDS: APIXABAN 5 MG TABLET PO ×2 (09:17→20:16)
[2017-08-12] MEDS: CHOLECALCIFEROL 1,000 UNIT TAB PO (09:18)
[2017-08-12] MEDS: PAROXETINE 10 MG TAB PO (09:18)
[2017-08-12] MEDS: LAMOTRIGINE 25 MG TAB PO ×2 (09:18→20:16)
[2017-08-12] MEDS: POTASSIUM CHLORIDE (SR) 20 MEQ TAB PO (09:30)
[2017-08-12] MEDS: DOCUSATE SODIUM 100 MG CAP PO (10:00)
[2017-08-12] MEDS: MAGNESIUM SULFATE 2 GM/50 ML 50 ML IVPB (10:30)
[2017-08-12] MEDS: POTASSIUM PHOSPHATE 20 MEQ in SOD CHLORIDE 0.9% 250 ML IVPB (14:28)
[2017-08-12] MEDS: BALSAM PERU/CASTOR OIL 60 GM TUBE TOP (16:30)
[2017-08-12] MEDS: morphine 2 MG INJ IV (16:37)
[2017-08-12] MEDS: FLUCONAZOLE 100 MG TAB PO (16:52)
[2017-08-12] MEDS: AMIKACIN 500 MG in SOD CHLORIDE 0.9% 100 ML IVPB (18:54)
[2017-08-12] MEDS: ATORVASTATIN 20 MG TAB PO (20:15)
[2017-08-12] MEDS: SOD CHLORIDE 0.45% 1,000 ML IV (20:22)
[2017-08-12] MEDS: INSULIN GLARGINE [LANtus] 3 ML PEN SC (20:26)
[2017-08-13] MEDS: VANCOMYCIN HCL 250 MG/5ML POSYG PO ×5 (01:04→23:28)
[2017-08-13] MEDS: ACCU-CHEK XX (02:00)
[2017-08-13] MEDS: hydrALAzine 20 MG INJ IV (02:29)
[2017-08-13 05:47] LABS: ADD MAN DIFF? NO
[2017-08-13 05:53] LABS: WHITE BLOOD COUNT 6.6 10^3/ul (4.8-10.8)
[2017-08-13 05:53] LABS: BASOPHILS % 0.3 % (0.0-2.0); EOSINOPHILS # 0.1 10^3/ul (0.0-0.5); EOSINOPHILS % 2.1 % (0.0-7.0); HEMATOCRIT 26.7 % (37.0-47.0); HEMOGLOBIN 8.9 g/dl (12.0-16.0); LYMPHOCYTES # 2.1 10^3/ul (0.8-2.9); LYMPHOCYTES % 31.3 % (15.0-51.0); MEAN CORPUSCULAR HEMOGLOBIN 27.8 pg (29.0-33.0); MEAN CORPUSCULAR HGB CONC 33.3 g/dl (32.0-37.0); MEAN CORPUSCULAR VOLUME 83.4 fl (82.0-101.0); MEAN PLATELET VOLUME 11.2 fl (7.4-10.4); MONOCYTE # 0.8 10^3/ul (0.3-0.9); MONOCYTES % 11.4 % (0.0-11.0); NEUTROPHIL # 3.6 10^3/ul (1.6-7.5); NEUTROPHILS % 54.1 % (39.0-77.0); PLATELET COUNT 246 10^3/UL (140-415); RED CELL DISTRIBUTION WIDTH 14.8 % (11.5-14.5)
[2017-08-13 07:01] LABS: ANION GAP 14 (8-16); BLOOD UREA NITROGEN 10 mg/dl (7-20); CALCIUM 7.8 mg/dl (8.4-10.2); CARBON DIOXIDE 24 mmol/L (21-31); CHLORIDE 108 mmol/L (97-110); CREATININE 0.71 mg/dl (0.44-1.00); GLUCOSE 70 mg/dl (70-220); MAGNESIUM 1.8 mg/dl (1.7-2.5); PHOSPHORUS 2.1 mg/dl (2.5-4.9); POTASSIUM 3.6 mmol/L (3.5-5.1); SODIUM 142 mmol/L (135-144)
[2017-08-13] MEDS: INSULIN ASPART [NOVOLOG] 3 ML PEN SC ×7 (08:00→21:00)
[2017-08-13] MEDS: FLUCONAZOLE 100 MG TAB PO (08:30)
[2017-08-13] MEDS: LAMOTRIGINE 25 MG TAB PO ×2 (08:32→21:16)
[2017-08-13] MEDS: APIXABAN 5 MG TABLET PO ×2 (08:32→21:16)
[2017-08-13] MEDS: PAROXETINE 10 MG TAB PO (08:33)
[2017-08-13] MEDS: CHOLECALCIFEROL 1,000 UNIT TAB PO (08:33)
[2017-08-13] MEDS ORDERED: POTASSIUM PHOSPHATE 15 MM in SOD CHLORIDE 0.9% 250 ML IVPB (12:00)
[2017-08-13] MEDS: POTASSIUM PHOSPHATE 20 MEQ in SOD CHLORIDE 0.9% 250 ML IVPB (12:05)
[2017-08-13 12:42] LABS: CREATININE, RANDOM URINE 100 mg/dL (20-320); MICROALBUMIN/CREATININE RATIO 20 (<30)
[2017-08-13] MEDS: AMIKACIN 500 MG in SOD CHLORIDE 0.9% 100 ML IVPB (16:40)
[2017-08-13] MEDS: BALSAM PERU/CASTOR OIL 60 GM TUBE TOP (20:00)
[2017-08-13] MEDS: VORICONAZOLE 200 MG TAB PO (21:16)
[2017-08-13] MEDS: ATORVASTATIN 20 MG TAB PO (21:16)
[2017-08-13] MEDS: INSULIN GLARGINE [LANtus] 3 ML PEN SC (21:21)
[2017-08-14] MEDS: hydrALAzine 20 MG INJ IV (01:43)
[2017-08-14] MEDS: SOD CHLORIDE 0.45% 1,000 ML IV (01:49)
[2017-08-14] MEDS: ACCU-CHEK XX (02:00)
[2017-08-14] MEDS: VANCOMYCIN HCL 250 MG/5ML POSYG PO ×2 (05:59→12:24)
[2017-08-14 06:27] LABS: ADD MAN DIFF? NO
[2017-08-14 06:41] LABS: BASOPHILS % 0.3 % (0.0-2.0); EOSINOPHILS # 0.2 10^3/ul (0.0-0.5); EOSINOPHILS % 2.1 % (0.0-7.0); HEMATOCRIT 30.6 % (37.0-47.0); LYMPHOCYTES # 2.7 10^3/ul (0.8-2.9); LYMPHOCYTES % 33.8 % (15.0-51.0); MEAN CORPUSCULAR HEMOGLOBIN 27.3 pg (29.0-33.0); MEAN CORPUSCULAR HGB CONC 32.7 g/dl (32.0-37.0); MEAN CORPUSCULAR VOLUME 83.6 fl (82.0-101.0); MEAN PLATELET VOLUME 10.9 fl (7.4-10.4); MONOCYTE # 0.9 10^3/ul (0.3-0.9); MONOCYTES % 11.9 % (0.0-11.0); NEUTROPHILS % 50.8 % (39.0-77.0); PLATELET COUNT 282 10^3/UL (140-415); RED BLOOD COUNT 3.66 10^6/ul (4.20-5.40); RED CELL DISTRIBUTION WIDTH 14.6 % (11.5-14.5)
[2017-08-14 06:41] LABS: WHITE BLOOD COUNT 7.9 10^3/ul (4.8-10.8)
[2017-08-14 07:49] LABS: ANION GAP 11 (8-16); BLOOD UREA NITROGEN 7 mg/dl (7-20); CALCIUM 8.2 mg/dl (8.4-10.2); CARBON DIOXIDE 28 mmol/L (21-31); CHLORIDE 107 mmol/L (97-110); GLUCOSE 69 mg/dl (70-220); MAGNESIUM 1.6 mg/dl (1.7-2.5); PHOSPHORUS 2.7 mg/dl (2.5-4.9); POTASSIUM 3.5 mmol/L (3.5-5.1); SODIUM 142 mmol/L (135-144)
[2017-08-14] MEDS: INSULIN ASPART [NOVOLOG] 3 ML PEN SC ×4 (07:56→12:28)
[2017-08-14] MEDS: APIXABAN 5 MG TABLET PO (09:53)
[2017-08-14] MEDS: BALSAM PERU/CASTOR OIL 60 GM TUBE TOP (09:54)
[2017-08-14] MEDS: LAMOTRIGINE 25 MG TAB PO (09:54)
[2017-08-14] MEDS: CHOLECALCIFEROL 1,000 UNIT TAB PO (09:54)
[2017-08-14] MEDS: PAROXETINE 10 MG TAB PO (09:54)
[2017-08-14] MEDS: VORICONAZOLE 200 MG TAB PO (09:57)
[2017-08-14] MEDS: MAGNESIUM SULFATE 2 GM/50 ML 50 ML IVPB (10:17)
[2017-08-14] MEDS: LEVOFLOXACIN 250 MG TAB PO (15:05)
[2017-08-14 18:56] LABS: AMIKACIN TROUGH 2.5 mg/L (4.0-8.0)
[2017-08-15] MEDS ORDERED: LEVOFLOXACIN 250 MG TAB PO (06:00)
== END 2017-08-14 15:20 | disposition hospice, home (50) | DRG 871 ==
LOC: E/R 07:09 → MS2 10:00
DX: A41.9 Sepsis, unspecified organism (principal); G92 Toxic encephalopathy; N17.9 Acute kidney failure, unspecified; B37.49 Other urogenital candidiasis; E87.0 Hyperosmolality and hypernatremia; E86.0 Dehydration; Z66 Do not resuscitate; R19.7 Diarrhea, unspecified; F03.90 Unspecified dementia, unspecified severity, without behavioral disturbance, psychotic disturbance, mood disturbance, and anxiety; I48.2 Chronic atrial fibrillation; G40.909 Epilepsy, unspecified, not intractable, without status epilepticus; E78.5 Hyperlipidemia, unspecified; E11.9 Type 2 diabetes mellitus without complications; F39 Unspecified mood [affective] disorder; I69.391 Dysphagia following cerebral infarction; R13.10 Dysphagia, unspecified; B96.20 Unspecified Escherichia coli [E. coli] as the cause of diseases classified elsewhere; D64.9 Anemia, unspecified; E83.42 Hypomagnesemia; Z79.4 Long term (current) use of insulin; Z79.01 Long term (current) use of anticoagulants
CPT/HCPCS: 80048; 80053; 80150; 81001; 81003; 82043; 82140; 82962; 83735; 84100; 84155; 84300; 84436; 84443; 84479; 85025; 87040; 87075; 87086; 92526; 92610; 93005; 97110; 97163; 97530; 99285-25